=== PATIENT | female | born 1950 | race Caucasian/White ===

== ENCOUNTER 2022-08-08 09:22 | Day surgery (SDC) | payer MEDICARE, MEDICAID, SELFPAY ==
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
[2022-08-08] MEDS: Tropicam./Phenyleph. (1/2.5%) 5 ML BTL OS ×3 (10:06→10:22)
[2022-08-08 10:07] VITALS: BP 154/82; PULSE 92; RESP 16; TEMP 36.4; O2SAT 97
[2022-08-08 10:20] VITALS: BMI 28.2
[2022-08-08] MEDS: Tetracaine 0.5% 4 ML BTL OS (10:38)
[2022-08-08] MEDS: Balanced Salt Soln.-PLUS 500 ML BAG (10:38)
[2022-08-08] MEDS: Duovisc Viscoelastic System EACH 1 EACH (10:40)
[2022-08-08] MEDS: Lidocaine 1% Pres-Free 5 ML VIAL (10:40)
[2022-08-08] MEDS: Lidocaine 2% Jelly 6 ML SYR (10:41)
[2022-08-08] MEDS: Povidone-Iodine Ophth 30 ML BTL (10:42)
[2022-08-08] MEDS: Trypan Blue 0.06% 0.5 ML SYR (10:43)
--- NOTE | 2022-08-08 11:12 | W.PM.DSUDISC ---
Date of service: 08/08/22 Time of Service: 11:13 Discharge Plan Disposition Patient Disposition: Home Discharge Details Attending Provider: Anders Kevin Primary Care Provider: RENEE SINGH Home Meds and New Rx's Prescriptions: No Action atorvastatin 40 mg Tablet 40 mg PO DAILY cilostazol 100 mg Tablet 100 mg PO BID aspirin [Aspir-81] 81 mg Tablet,Delayed Release (Dr/Ec) 81 mg PO DAILY acetaminophen 500 mg Tablet 500 mg PO Q6H PRN losartan 25 mg Tablet 25 mg PO DAILY polyethylene glycol 3350 [Miralax] 17 gram/dose Powder 17 g PO DAILY PRN Refresh Optive Jose Eduardo-3 (PF) 0.5-1-0.5 % Dropperette 1 drp OPHTHALMIC (EYE) 8-12XD PRN Discharge Instructions Stand Alone Forms: Post-op Topical Cataract, Shawna Lamar (DSU) Discharge Orders Discharge Orders: Discharge Order (Routine); Ordered 08/08/22 Ordered By: Anders Kevin DS: Diagnosis Discharge Diagnosis (1) Nuclear sclerotic cataract of left eye: Status: Resolved (2) Mature cataract: Status: Resolved
--- NOTE | 2022-08-08 11:14 | ROE_ITS ---
Date of service: 08/08/22 Time of Service: 11:14 Operative Note Operative Note DATE OF PROCEDURE: 08/08/22 POST-OP DIAGNOSIS: same PROCEDURE: Cataract extraction by phacoemulsification with intraocular lens implantation, left eye, with pupillary expansion device and capsular staining with VisionBlue. SURGEON: Anders Kevin ANESTHESIA TYPE: Local By Surgeon and MAC Refer to Anesthesia Record ESTIMATED BLOOD LOSS: 0 PATHOLOGY: none sent COMPLICATIONS: None Patient was transported to: same day Patient's condition: stable Implants: Ovi and Ovi / [employer] Tecnis [id number] Indications: Progressive decreased vision, left eye Poorly dilating pupil, left eye. Absent red reflex, left eye secondary to mature white cataract Procedure Description: CATARACT SURGERY OPERATIVE REPORT PREOPERATIVE DIAGNOSIS: 1. Mature white cataract, left eye 2. Poorly dilating pupil, left eye 3. Mature white cataract, left eye POSTOPERATIVE DIAGNOSIS: Same OPERATION: 1. Cataract extraction using phacoemulsification with posterior chamber intraocular lens implant, left eye. 2. Pupillary dilation and iris stabilization using Malyugin Ring IOL; IOL Chief Librarian Music Department/Model: Ovi & Ovi / ULCIAN Tecnis [id number] IOL Power: + 21.0 diopters IOL Serial Number: [id number] Optic Diameter: 6.0 mm Haptic/Overall Diameter: 13.00 mm PHACO INFO: Marquise Centurion Vision System with OZil and Active [employer]uidics Cumulative Dispersed Energy (CDE): 12.21 seconds SURGEON: Anders Kevin MD, MICHELLE ANESTHESIA: Monitored Anesthesia Care (MAC), with local sub-tenon's anesthetic infiltration COMPLICATIONS: None SPECIMENS: None INDICATIONS FOR PROCEDURE: The patient is a 71-year-old lady with history of progressive decreased vision in her left eye. She was noted to have a significant nuclear cataract in the left eye. However, on examination the preoperative area, she now has a mature white cataract in the left eye with absent red reflex. The option of cataract surgery was offered to the patient and she wished to proceed. PROCEDURE: The correct surgical eye was identified and marked as the left eye and the pupil was dilated in the preoperative area using mydriatics, cycloplegics, and NSAIDS (except in aspirin allergic patients). The dilated pupil size was 4.0 mm. The patient elected to proceed without oral sedation. The patient was brought to the operating room where cardiopulmonary monitoring was instituted and surgical time-out was performed, confirming the correct operative eye and IOL power. Topical anesthesia was administered and ophthalmic povidone-iodine 5% was instilled into the conjunctival fornices. Lidocaine gel was applied to the cornea and the lashawn-ocular area was prepped with Betadine 10% solution and draped in the usual sterile fashion for intraocular surgery, including an aperture drape. A Tegaderm transparent film dressing was cut in half and used to cover the lashes and lid margins. Care was taken to sequester the lashes and lid margins under the Tegaderm dressing. A lid speculum was placed between the lids of the operative eye and the Jaylen-Janes operating microscope was maneuvered into position. A mature white cataract was present. Xavier scissors were then used to make a conjunctival buttonhole approximately 6mm posterior to the limbus in the inferonasal quadrant. Blunt dissection was carried out to expose bare sclera, and a blunt-tipped sub-tenon?s anesthesia can nula was introduced and passed posteriorly along the globe where non-preserved plain lidocaine was injected into posterior sub-Tenon?s space. A sideport knife was used to make a paracentesis port superiorly/superiortemporally. Intraocular phenylephrine/lidocaine was injected into the anterior chamber. The anterior chamber was then filled with viscoelastic. Provisc was used initially. A keratome knife was used to create a half-thickness groove at the limbus and then to construct a three-plane near-clear corneal tunnel extending 2.0mm into clear cornea at the temporal position. A 7.0 mm Malyugin Ring was then inserted into the pupillary space and engaged with the Kuglen hook. Provisc was then removed from the anterior chamber, exchanged for balanced salt solution. VisionBlue was then injected into the anterior chamber and allowed to sit for 8 to 10 seconds to stay in the anterior capsule. A flap was raised on the anterior capsule,, significant amount of liquefied cortex was expressed. The irrigation/aspiration handpiece was again introduced and used to gently milk the liquefied cortex from under the anterior capsule. The anterior chamber was then refilled with Viscoat. Capsulorhexis forceps were used to complete a continuous curvilinear capsulorhexis of 5.5 mm mm, using a spiral technique, with intermittent administration of Viscoat to flatten the anterior capsule. Balanced salt solution was then used to perform cortical cleaving hydrodissection and nuclear hydrodelineation until the lens could be freely rotated within the capsular bag. The lens nucleus was then disassembled and removed within the capsular bag and iris plane using phacoemulsification. Residual cortical material was removed using the 45-degree angled silicone I/A tip with 0.3mm port. The posterior capsule was carefully polished to remove as much residual lens epithelial cells as safely possible. The capsular bag was then inflated and the anterior chamber deepened with viscoelastic. The lens implant described above was inserted into the capsular bag using the [employer] [place] Injector. A Kuglen hook was used to dial the IOL into position. The Malyugin Ring was removed in the reverse order of its insertion. Residual viscoelastic was then removed first from posterior to the IOL, then from the anterior chamber using the I/A handpiece. The lens implant was noted to center nicely within the capsular bag. The incisions were stromally hydrated, and the anterior chamber was reformed using BSS. Then 0.5cc of moxifloxacin 1.0mg/ml were injected into the capsular bag and anterior chamber. The incisions were checked with a Weck spear and found to be secure. Several drops of ophthalmic povidone-iodine 5% were then applied to the eye followed by two drops of Imprimis combination prednisolone/moxifloxacin/nepafenac solution. The drapes were removed and a clear plastic protective eye shield was placed over the eye. The patient was then returned to Same Day Surgery in stable condition.
[2022-08-08 11:15] VITALS: BP 169/86; PULSE 84; RESP 16; TEMP 36.1; O2SAT 99
--- NOTE | 2022-08-08 11:27 | W.ANESPOSTOP ---
Postoperative Evaluation Date, Time and Location Date Performed: 08/08/22 Time Performed: 11:27 Patient Location: Day Surgery Unit Vital Signs Most Recent Imported Vital Signs: Most Recent Vital Signs Temp Pulse Resp BP Pulse Ox 36.1 C L 84 16 169/86 H 99 08/08/22 11:15 08/08/22 11:15 08/08/22 11:15 08/08/22 11:15 08/08/22 11:15 Pain Score Most Recent Pain Score: Most Recent Pain Score Pain Level 0 08/08/22 11:15 Assessment Mental Status: Awake (Alert & Oriented to Patient Baseline) Airway and Respiratory Function: Patent airway with normal (patient baseline) respiratory exam Cardiovascular Function: Hemodynamically Stable Hydration Status: Adequately Hydrated Nausea & Vomiting: No Nausea or Vomiting Pain: Pt. Denies Any Pain Peripheral Nerve Block: Patient did not receive a nerve block
== END 2022-08-08 11:35 | disposition home or self-care (01) ==
LOC: SUR 09:23
PROVIDERS: PCP Nurse Practitioner Family; Visit Provider Ophthalmology
PROC: (CPT 66982; principal; 2022-08-08 12:30)
DX: H25.12 Age-related nuclear cataract, left eye (principal); H26.8 Other specified cataract; H57.03 Miosis
CPT/HCPCS: 66982; V2632